=== PATIENT | female | born 1960 ===

== ENCOUNTER 2019-05-25 09:25 | Day surgery (SDC) | payer BC ==
[~2019-05-25] VITALS: Ht 172.7 cm; Wt 112.9 kg
[~2019-05-25 09:25] MED LIST: CONEST.625 PO
[2019-05-25] MEDS ORDERED: THYR60 (09:45)
--- NOTE | 2019-05-25 13:29 | NUR ---
05/25/19 1329 Asuncion Whitaker DELAYED ENTRY 1106 PT ASSISTED TO RESTROOM
== END 2019-05-25 12:18 | disposition home or self-care (01) ==
LOC: ORSCSDS 09:25
PROVIDERS: Internal Medicine Gastroenterology
PROC: 0DBM8ZX Excision of Descending Colon, Via Natural or Artificial Opening Endoscopic, Diagnostic (ICD-10-PCS; principal; 2019-05-25 11:00)
PROC: 0DBN8ZX Excision of Sigmoid Colon, Via Natural or Artificial Opening Endoscopic, Diagnostic (ICD-10-PCS; principal; 2019-05-25 11:00)
PROC: 0DBL8ZX Excision of Transverse Colon, Via Natural or Artificial Opening Endoscopic, Diagnostic (ICD-10-PCS; principal; 2019-05-25 11:00)
DX: Z12.11 Encounter for screening for malignant neoplasm of colon (principal); Z86.010 Personal history of colon polyps; D12.5 Benign neoplasm of sigmoid colon; D12.4 Benign neoplasm of descending colon; D12.3 Benign neoplasm of transverse colon; K57.30 Diverticulosis of large intestine without perforation or abscess without bleeding; K64.8 Other hemorrhoids; F17.210 Nicotine dependence, cigarettes, uncomplicated; E78.5 Hyperlipidemia, unspecified; G47.33 Obstructive sleep apnea (adult) (pediatric); Z79.82 Long term (current) use of aspirin; Z79.899 Other long term (current) drug therapy
CPT/HCPCS: 88305; J2704; J7120

== ENCOUNTER → 2021-02-23 | Outpatient (CLI) | payer BC ==
[~2021-02-23] MED LIST changes: +THYR60
== END | disposition home or self-care (01) ==
LOC: LAB SHORT 12:37 → LAB 12:37
DX: L57.0 Actinic keratosis (principal)
CPT/HCPCS: 88305; 88342

== ENCOUNTER 2021-06-04 12:13 | Emergency (ER) | payer OTHER, BC ==
[~2021-06-04] VITALS: Ht 172.7 cm; Wt 104.3 kg
== END 2021-06-04 14:30 | disposition left against medical advice (07) ==
LOC: ER 12:13
DX: M54.2 Cervicalgia (principal); R51.9 Headache, unspecified; R20.2 Paresthesia of skin; V40.5XXA Car driver injured in collision with pedestrian or animal in traffic accident, initial encounter; Z53.21 Procedure and treatment not carried out due to patient leaving prior to being seen by health care provider
CPT/HCPCS: 70450; 72125; 99282-25

== ENCOUNTER 2021-06-04 16:07 | Emergency (ER) | payer OTHER, BC ==
[~2021-06-04] VITALS: Ht 167.6 cm; Wt 108.9 kg
== END 2021-06-04 17:26 | disposition home or self-care (01) ==
LOC: ER 16:07
DX: M54.2 Cervicalgia (principal); M54.50 Low back pain, unspecified; F17.200 Nicotine dependence, unspecified, uncomplicated; V89.2XXA Person injured in unspecified motor-vehicle accident, traffic, initial encounter
CPT/HCPCS: 72100; 99283-25